=== PATIENT | female | born 1960 | race Caucasian/White ===

== ENCOUNTER 2019-05-15 06:53 | Outpatient (CLI) | payer BC ==
--- NOTE | 2019-05-15 07:58 | ULT ---
Abdominal ultrasound: 05/15/2019 COMPARISON: None HISTORY: Right upper quadrant pain TECHNIQUE: Multiplanar grayscale sonographic imaging of the abdomen obtained. FINDINGS: Pancreas is unremarkable. No focal liver lesion or intrahepatic biliary dilatation. Imaged IVC and aorta appear within normal limits. Distal aspect of pancreatic tail obscured by bowel gas. No gallbladder wall thickening or pericholecystic fluid. No gallstones are noted. 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 The right kidney measures 10.2 cm in craniocaudal dimension and demonstrates no evidence for stone, h ydronephrosis, or mass. Left kidney measures 10.2 cm in craniocaudal dimension and demonstrates no evidence for stone, hydronephrosis, or mass. Spleen measures up to 8.1 cm, within normal limits. Common bile duct is normal in caliber, measuring approximately 3 mm. IMPRESSION: Unremarkable abdominal ultrasound.
== END 2019-05-15 06:54 | disposition home or self-care (01) ==
LOC: BICULT 06:53
PROVIDERS: ATTEND Family Medicine
DX: R10.84 Generalized abdominal pain (principal)
CPT/HCPCS: 93975

== ENCOUNTER 2019-06-20 10:30 | Outpatient (CLI) | payer BC ==
--- NOTE | 2019-06-20 14:28 | MRI ---
MRI ABDOMEN WITH AND WITHOUT CONTRAST: 06/20/19 HISTORY: Right sided abdominal pain, R10.9. COMPARISON: Abdominal ultrasound 05/15/16. FINDINGS: There are bilateral breast implants with small amount of normal periprosthetic fluid. No pleural effu courtney. No significant pericardial fluid. There is no intrahepatic or extrahepatic biliary dilatation. No cholelithiasis. Background marrow signal of the spine appears to be maintained with a superior end plate Schmorl's no de of L2. No significant hepatic steatosis. The adrenal glands are normal. No hydronephrosis. No abnormal enhan cing mass of the kidneys or urothelium. The portal vein is patent. Pancreas is normal. The celiac trunk and superior mesenteric arteries are patent. Both renal arteries are patent. No retr operitoneal or periaortic adenopathy. Small 5 mm cyst hepatic segment 2. Relatively small nonenhancing cyst hepatic segment 5. No gastric m ass is appreciated. No perigastric adenopathy. IMPRESSION: 1. Normal examination of the abdomen. Small benign hepatic cyst. 2. No perigastric adenopathy. Relatively normal appearance of the stomach. 3. No intrahepatic or extrahepatic biliary dilatation. 4. Mildly ectatic right ureter which appears to have a retrogonadal course, although incompletel y evaluated. No hydronephrosis. 5. Intact visualized portions of the breast implants with normal small volume of periprosthetic fluid. POS: [facility]
[2019-06-20] MEDS ORDERED: Magnevist 469MG/ML 20 ML VIAL ONE (14:48)
== END 2019-06-20 10:31 | disposition home or self-care (01) ==
LOC: BICMRI 10:30
PROVIDERS: ATTEND Internal Medicine Gastroenterology
DX: C49.A2 Gastrointestinal stromal tumor of stomach (principal); K31.89 Other diseases of stomach and duodenum; R10.9 Unspecified abdominal pain; D49.0 Neoplasm of unspecified behavior of digestive system; K76.89 Other specified diseases of liver; N28.89 Other specified disorders of kidney and ureter; Z98.82 Breast implant status
CPT/HCPCS: 74183; A9579

== ENCOUNTER 2020-01-22 13:54 | Outpatient (CLI) | payer BC ==
--- NOTE | 2020-01-22 14:35 | BD ---
BONE DENSITOMETRY USING DEXA: Date: 01/22/2020 HISTORY: Postmenopausal screening for osteoporosis. FINDINGS: Lumbar Spine: BMD (g/cm2) L1 0.762 T-Score: -2.1 Z-Score: -0.9 L2 0.771 T-Score: -2.3 Z-Score: -1.0 L3 0.825 T-Score: -2.4 Z-Score: -1.0 L4 0.776 T-Score: -2.6 Z-Score: -1.2 L1-L4 0.784 T-Score: -2.4 Z-Score: -1.0 Femoral Neck: 0.568 T-Score: -2.5 Z-Score: -1.3 Total Femur: 0.731 T-Score: -1.7 Z-Score: -0.8 IMPRESSION: Osteoporosis. POS: AH
--- NOTE | 2020-02-19 13:27 | MMO ---
Bilateral MAMMO Bilat Screen [facility]. CLINICAL HISTORY: Patient is 60 years old and is seen for screening. The patient has no family history of breast cancer. The patient has a history of gi cancer in 2018. The patient has a history of Implants in 2010. VIEWS: The views performed were: bilateral craniocaudal with tomosynthesis and bilateral mediolateral oblique with tomosynthesis. This study has been interpreted with the assistance of computer-aided detection. MAMMOGRAM FINDINGS: There are scattered fibroglandular densities. There are no suspicious masses, suspicious calcifications, or new areas of architectural distortion. IMPRESSION: THERE IS NO MAMMOGRAPHIC EVIDENCE OF MALIGNANCY. A ROUTINE FOLLOW-UP MAMMOGRAM IN 1 YEAR IS RECOMMENDED. THE RESULTS OF THIS EXAM WERE SENT TO THE PATIENT. ACR BI-RADS Category 1 - Negative MAMMOGRAPHY NOTE: 1. A negative mammogram report should not delay a biopsy if a dominant of clinically suspicious mass is present. 2. Approximately 10% to 15% of breast cancers are not detected by mammography. 3. Adenosis and dense breasts may obscure an underlying neoplasm. Reported by: DONOVAN HASSAN MD Electonically Signed: [id number]
== END 2020-01-22 13:55 | disposition home or self-care (01) ==
LOC: BICMAMMO 13:54
PROVIDERS: ATTEND Family Medicine
DX: Z12.31 Encounter for screening mammogram for malignant neoplasm of breast (principal); Z13.820 Encounter for screening for osteoporosis; Z78.0 Asymptomatic menopausal state; M81.0 Age-related osteoporosis without current pathological fracture; Z98.82 Breast implant status; Z85.00 Personal history of malignant neoplasm of unspecified digestive organ
CPT/HCPCS: 77063; 77067; 77080

== ENCOUNTER 2020-08-19 07:22 | Outpatient (CLI) | payer BC ==
[2020-08-19] MEDS ORDERED: Iopamidol-370 76% 500 ML 1 ML ONE (12:17)
== END 2020-08-19 07:23 | disposition home or self-care (01) ==
LOC: BICCT 07:22
PROVIDERS: ATTEND Internal Medicine Gastroenterology
DX: C49.A2 Gastrointestinal stromal tumor of stomach (principal); D49.0 Neoplasm of unspecified behavior of digestive system; R10.9 Unspecified abdominal pain; K31.89 Other diseases of stomach and duodenum; K80.20 Calculus of gallbladder without cholecystitis without obstruction; K59.00 Constipation, unspecified; Z86.010 Personal history of colon polyps
CPT/HCPCS: 74177; Q9967

== ENCOUNTER 2022-03-16 07:50 | Outpatient (CLI) | payer BC ==
[2022-03-16] MEDS ORDERED: Iopamidol-370 76% 500 ML 1 ML ONE (11:07)
== END 2022-03-16 07:51 | disposition home or self-care (01) ==
LOC: BICCT 07:50
PROVIDERS: ATTEND Physician Assistant Medical
DX: C49.A2 Gastrointestinal stromal tumor of stomach (principal)
CPT/HCPCS: 74178; 82565; Q9967

== ENCOUNTER 2022-05-27 14:53 | Outpatient (CLI) | payer BC | END 2022-05-27 14:54 | disposition home or self-care (01) | LOC: BICMAMMO 14:53 | PROVIDERS: ATTEND Family Medicine | DX: Z12.31 Encounter for screening mammogram for malignant neoplasm of breast (principal); C26.9 Malignant neoplasm of ill-defined sites within the digestive system; Z98.82 Breast implant status | CPT/HCPCS: 77063; 77067 ==